=== PATIENT | male | born 2000 ===

== ENCOUNTER 2018-04-25 14:52 | Emergency (ER) | payer OTHER ==
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
[2018-04-25 15:48] VITALS: BP 143/83
--- NOTE | 2018-04-25 16:06 | UC ---
Dental HPI - HPI Summary HPI Summary: Pt presents with 2 days right lower jaw swelling and pain. Pt with h.o poor dentition and infections. Pt has been taking ibuprofen and Naproxy with little relief. pt has a dental appt for next Thur. Pt denies fever, chills. no ear pain. No difficulty swallowing Pt's medications reviewed this visit - History of Current Complaint Chief Complaint: UCDentalProblem Stated Complaint: ABCESS IN TOOTH,JAW SWELLING Time Seen by Provider: 04/25/18 15:46 Hx Obtained From: Patient Onset/Duration: Gradual Onset Severity: Severe Pain Intensity: 9 Pain Scale Used: 0-10 Numeric Aggravating Factor(s): Chewing Alleviating Factor(s): OTC Meds Related History: Swelling - Allergies/Home Medications Allergies/Adverse Reactions: Allergies Allergy/AdvReac Type Severity Reaction Status Date / Time Penicillins Allergy Hives Verified 04/25/18 15:48 Home Medications: Home Medications ALPRAZolam TAB* [Xanax TAB*] 0.25 mg PO BID 04/25/18 [History Confirmed 04/25/18 ] Naproxen TAB* [Naprosyn 250 mg TAB*] 500 mg PO DAILY 04/25/18 [History Confirmed 04/25/18] Sertraline* [Zoloft*] 100 mg PO BEDTIME 04/25/18 [History Confirmed 04/25/18] traZODone TAB* [Desyrel TAB*] 100 mg PO DAILY 04/25/18 [History Confirmed ] PMH/Surg Hx/FS Hx/Imm Hx Previously Healthy: Yes Psychological History: Anxiety - Surgical History Surgical History: None - Social History Occupation: Unemployed Lives: With Family Alcohol Use: None Substance Use Type: Marijuana Substance Use Comment - Amount & Last Used: occasionally Smoking Status (MU): Heavy Every Day Tobacco Smoker Type: Cigarettes Review of Systems Constitutional: Negative Skin: Negative ENT: Other - dental pain, facial swelling All Other Systems Reviewed And Are Negative: Yes Physical Exam - Summary Physical Exam Summary: Vital Signs Reviewed: Yes A+Ox3, no distress Eyes: Conjunctiva Clear, KOKO. EOM intact and full ENT: Hearing grossly normal TM x 2 clear, turbinates wnl mmoist, uvula midline , no exudate, no erythema poor dentition, caries #28 tooth with large cavity mild edema buccal gumline + ttp no fluctuance right lower jaw edema along mandible no fluctuance, no erythema no difficulty with secretions, speech Neck: Positive: Supple mild right submandibular LA Respiratory: Positive: No respiratory distress, No accessory muscle use + CTA throughout no w/r Cardiovascular: RRR nl s1, s2 no m/r CBT <2 sec abd soft + BS nt/nd no guarding, no distension Musculoskeletal Exam: WALTER x 4 without difficulty Strength Intact, ROM Intact Neurological: Positive: Alert, + sensation throughout Psychological: Positive: Normal Response To Family Skin: Positive: no rash, no ecchymosis Triage Information Reviewed: Yes Vital Signs: Initial Vital Signs Temp 99 F 04/25/18 15:41 Pulse 120 04/25/18 15:41 Resp 18 04/25/18 15:41 BP 143/83 04/25/18 15:41 Pulse Ox 98 04/25/18 15:41 Dental Complaint Course/Dx - Course Course Of Treatment: Pt presents with progressive right lower jaw pain and dental pain. + TTP #28. mild buccal edema @28. Will Rx Clindamycine. Chlorexadine. salt water. motrin/apap. return precuations. dental clement Darcie as scheduled. Pt's bp eleavted - pain -recommend PCP fu - Differential Dx/Diagnosis Provider Diagnoses: denal abscess Discharge - Sign-Out/Discharge Documenting (check all that apply): Patient Departure All imaging exams completed and their final reports reviewed: No Studies - Discharge Plan Condition: Stable Disposition: HOME Prescriptions: Chlorhexidine MOUTHWASH 0.12%* [Peridex Mouth Wash 0.12%*] 15 ml SWISH SPIT Q6HR #150 oral.soln Clindamycin Cap(NF) [Clindamycin Cap 300 mg Cap(NF)] 300 mg PO TID #30 cap Patient Education Materials: Dental Abscess (ED) Referrals: Arturo Pena MD [Medical Doctor] - Additional Instructions: - Okay to alternate ibuprofen (Advil, Motrin) 600mg and Tylenol 1000mg every 3 hours for pain. Take with food. Do NOT take for more than 4-5 days. Do NOT Take Naproxyn if you are taking motrin - this combination may cause stomach pain and bleeding. -Swish and spit with warm salt water 3-4 times a day -Take anitbiotics as prescribed until gone -Stay well hydrated - frequent sips of cold fluids will be soothing to your throat (popsicles, jello, ice cream, ice water) -Swish and spit with mouth rinse prescribed - contact your doctor on Friday for an appointment this week. If you develop fevers, difficulty breathing other concerns it is recommended you go to the emergency department. You have also been given information for walk in dental clinics. - Billing Disposition and Condition Condition: STABLE Disposition: Home
== END 2018-04-25 16:35 | disposition home or self-care (01) ==
LOC: UCEAST 14:52
DX: K04.7 Periapical abscess without sinus (principal); F17.210 Nicotine dependence, cigarettes, uncomplicated
CPT/HCPCS: 99212; G0463